=== PATIENT | female | born 1960 | race Caucasian/White ===

== ENCOUNTER → 2016-08-07 | Outpatient (CLI) | payer OTHER ==
[2016-08-07 16:47] LABS: BASO % 0.4 %; BASO ABS # 0.03 K/uL (0-0.2); COMPLETE YES; EOS % 1.3 %; HEMATOCRIT 43.1 % (37-47); LYMPH % 33.1 %; LYMPH ABS # 2.24 K/uL (1.2-3.4); MEAN CELL VOLUME 90.7 fL (80-100); MEAN CORPUSCULAR HEMOGLOBIN 30.9 pg (25-34); MEAN CORPUSCULAR HGB CONC 34.1 g/dl (32-36); MEAN PLATELET VOLUME 10.1 fL (7.4-10.4); MONO % 6.8 %; NEUT % 58.4 %; PLATELET COUNT 288 K/uL (130-400); RED BLOOD COUNT 4.75 M/uL (4.2-5.4); WHITE BLOOD COUNT 6.77 K/uL (4.8-10.8)
[2016-08-07 17:22] LABS: BLOOD UREA NITROGEN 18 mg/dl (7-18); BUN/CREATININE RATIO 20.9 (10-20); CALCIUM 9.1 mg/dl (8.5-10.1); CARBON DIOXIDE 28 mmol/L (21-32); CHLORIDE 105 mmol/L (98-107); CREATININE 0.87 mg/dl (0.60-1.20); GLUCOSE 92 mg/dl (70-99); POTASSIUM 4.2 mmol/L (3.5-5.1); SODIUM 140 mmol/L (136-145)
== END | disposition home or self-care (01) ==
LOC: C.CPL 15:40
PROVIDERS: ATTEND Physician Assistant
DX: S83.241A Other tear of medial meniscus, current injury, right knee, initial encounter (principal); X58.XXXA Exposure to other specified factors, initial encounter

== ENCOUNTER → 2016-08-07 | Outpatient (CLI) | payer OTHER | END | disposition home or self-care (01) | LOC: C.RDSM 10:37 | PROVIDERS: ATTEND Physical Medicine & Rehabilitation Sports Medicine | DX: M25.561 Pain in right knee (principal) ==

== ENCOUNTER → 2016-08-15 | Day surgery (SDC) | payer OTHER ==
[2016-08-14 09:49] VITALS: BMI 27.0
[2016-08-14 15:02] VITALS: Ht 158.8 cm; Wt 59.1 kg
[~2016-08-15] VITALS: Ht 158.8 cm; Wt 59.1 kg
[~2016-08-15] MED LIST: BUPIVACAINE/EPINEPHRINE 0.5% MPF 1:200,000 30 ML VIAL INJ ONE; BUPIVACAINE/EPINEPHRINE 0.5% MPF 1:200,000 30 ML VIAL ONE; CEFAZOLIN 2000 MG/60 ML D5W IV SCH; DEXAMETHASONE SOD INJ 4 MG/ML VIAL ONE; DURAMORPH 10 MG/10 ML INJ ONE; FENTANYL CITRATE INJ 50 MCG/1 ML 2 ML VIAL ONE; GLYCOPYRROLATE INJ 0.2 MG/ML VIAL ONE; KETOROLAC TROMETHAMINE 30 MG/ML VIAL ONE; LACTATED RINGER'S 1000ML 1,000 ML IV SCH; LIDOCAINE HCL 2% 2 ML VIAL (20MG/ML) ONE; MIDAZOLAM HCL 1 MG/ML 2ML VIAL ONE; MoRPHine SULFATE PF 1 MG/ML 10 ML AMP/VIAL ONE; ONDANSETRON INJ 2 MG/ML 2 ML VIAL IV PRN; ONDANSETRON INJ 2 MG/ML 2 ML VIAL ONE; PATIENT'S ALLERGY INFO NEEDS ENTERED SCH; PATIENT'S HEIGHT AND/OR WEIGHT NEEDED SCH; PROPOFOL IV EMULSION 10 MG/ML 20 ML VIAL IV ONE; SODIUM CHLORIDE 0.9% 1000ML 1,000 ML IV SCH
--- NOTE | 2016-08-15 06:46 | History & Physical Bridge Note ---
H&P Re-Evaluation Bridge Note: I have examined the patient, reviewed the History & Physical and in the interval since the performance of the History & Physical I have noted the following changes of clinical significance: No changes noted
--- NOTE | 2016-08-15 06:48 | Discharge Instructions ---
Discharge Instructions Date of Service Aug 15, 2016. Visit Reason for Visit: Right Knee Medial Meniscus Tear Discharge Discharge Diagnosis / Problem: same Discharge Goals Goal(s): Decrease discomfort, Improve function Medications Stopped Medications Name(s): na Restart Stopped Medication(s): resume all meds scripts as directed Activity Recommendations Activity Limitations: as noted below Lifting Limitations: until after follow-up appointment Exercise/Sports Limitations: until after follow-up appointment May Resume Sexual Activity: when tolerated Shower/Bathe: keep incision dry Driving or Machine Use: resume 1 day after discharge Weightbearing Status: Right weightbearing (as tolerated) Anesthesia . Post Anesthesia Instructions: If you have had General Anesthesia or IV Sedation: * Do not drive today. * Resume driving when surgeon permits. * Do not make important decisions or sign legal documents today. * Call surgeon for: 1. Temperature elevations greater than 101 degrees F. 2. Uncontrollable pain. 3. Excessive bleeding. 4. Persistent nausea and vomiting. 5. Medication intolerance (nausea, vomiting or rash). * For nausea and vomiting use only clear liquids such as: tea, soda, bouillon until nausea subsides, then gradually increase diet as tolerated. * If you have any concerns or questions, call your surgeon's office. If physician is unavailable and it is an emergency, call 911 or go to the nearest emergency room. . Instructions / Follow-Up Instructions / Follow-Up The following are instructions to follow after your Arthroscopic Knee Surgery. ACTIVITY RECOMMENDATIONS: * Minimize activity until your first visit after surgery. * No excessive walking, jogging, sports or laboring. * Return to activity is individualized. Most patients are able to return to every day activities within one month. * Return to sports or intensive labor usually occurs at 2-3 months. * Driving is not permitted until at least your first postoperative visit at a minimum. Please ask your doctor when it is safe to resume driving. If you have an automatic vehicle and your left leg has been operated on, then you may begin driving as soon as you are comfortable and can drive safely. SCHOOL/WORK RECOMMENDATIONS: * You may return to sedentary work or school when you are feeling more comfortable. This is usually 3-7 days after surgery. * Expect increased discomfort with increased activity. Continue to elevate and ice the leg as much as possible. MEDICATIONS: * You will have a prescription for pain medication and an anti-inflammatory medication after surgery. * Use the pain medication for severe pain and the anti-inflammatory for less severe pain. Once the pain medication has run out, try to use the anti-inflammatory medication. If this is not effective, contact the office for assistance. * The pain medication may cause nausea, constipation and drowsiness. You should see how they affect you before driving or similar activity. * The anti-inflammatory medication may cause stomach upset and bleeding. If this occurs let your doctor know immediately . * Take a stool softener like Colace or a laxative like Senokot to prevent constipation. DIET: * Resume previous diet. SPECIAL CARE: ICE: You have the option of an ice cooler, gel packs or ice bags. * If you have an ice cooler, refer to the instructions for that device. The ice cooler may be used continuously. * If you do not have an ice cooler, you will need to use ice bags or gel packs. Do not apply ice directly to the skin. Use a thin dressing or philip shirt between the skin and ice bag. Apply ice for 20-30 minutes and repeat every 2-4 hours. This is especially important for the first 7-10 days after surgery. Once the pain improves, use ice as needed. ELEVATION: * Keep your leg elevated at or above the level of your heart as much as possible. * Expect some increased discomfort and swelling if you are standing for any length of time. * When lying down, avoid placing anything under your knee. Rather, prop your leg up by placing several pillows under your heel or calf. DRESSING: * Your dressing will be changed at your first therapy appointment approximately 4-5 days after surgery. Band-aids, tape strips or gauze may be applied. You may then change your dressing daily. * Reapply dressing followed by the Bert wrap or Tubi-hammerer helper stockinet and EBIce cooling pad (if chosen). * Always wash your hands prior to touching the incision area. * Once the stitches are removed, you may leave the wound open to air or cover with an Bert wrap or Tubi-hammerer helper stockinet. * If you have been given a white elastic stocking (YOLANDA hose), wear as much as possible for the first 1-3 weeks depending on swelling. * Expect some bloody drainage for the first few days after surgery. * Leave the tape strips, if present, in place for 5-7 days. * Band-aids and gauze may be changed daily. CRUTCHES: * You will need to use crutches after surgery. * You may gradually progress to full weight bearing as tolerated and wean off the crutches unless otherwise advised. * Your therapist can provide assistance weaning off crutches. * Patients who have a microfracture done may need to be toe-touch weight- bearing for 4-6 weeks. BATHING: * You may shower or sponge-bathe immediately after surgery. * The dressing will need to be covered with a plastic bag or plastic wrap until the dressing is changed on the fourth or fifth day after surgery. * Once the dressing has been changed on the fourth or fifth day after surgery, you may shower and get the incision wet. * Wash with regular soap and water. * Do not bathe (submerge the incision), soak, swim or use a hot tub until the incision is completely healed over with normal skin and the doctor has given the OK to proceed. * There is no need to apply any ointments, powders or salves to your incision. * Do not apply alcohol or hydrogen peroxide directly to the incision. * Diluted peroxide (50:50 mixture with sterile saline) may be used to clean dried blood from around the incision area. BRACE: * Bracing is generally not needed after routine Arthroscopic Knee surgery. THERAPY: * You will begin therapy four or five days after surgery. * Organized therapy with the therapist is important for the first 4-6 weeks after surgery. During that time you will attend therapy 1-3 times per week. * You will also need to do daily exercises for range of motion and strength as instructed. PROBLEMS/QUESTIONS: * If you have any problems such as severe pain, numbness, tingling or high fevers or if you have any questions, please contact the office at [phone]. * It is not uncommon to have some numbness and tingling after the surgery especially if you have had a nerve block done. This should gradually improve over the first 1- 2 days. If this persists longer or worsens please contact the office. FOLLOW UP VISIT: * If not already scheduled, please call the office at to schedule a follow-up appointment for 10 days, 6 weeks and 3 months after surgery. Diet Recommendations Recommended Home Diet: resume previous diet Procedures Procedures Performed: acopy right knee partial medial menisectomy Pending Studies Studies pending at discharge: no List of pending studies: na Medical Emergencies . Who to Call and When: Medical Emergencies: If at any time you feel your situation is an emergency, please call 911 immediately. . Non-Emergent Contact Non-Emergency issues call your: Specialist Call Non-Emergent contact if: temperature is above 101.5 . . "Provider Documentation" section prepared by Marlon Pillai.
--- NOTE | 2016-08-15 08:18 | [facility] Post Operative Brief Note ---
Immediate Operative Summary Operative Date Aug 15, 2016. Pre-Operative Diagnosis Right Knee Medial Meniscus Tear Post-Operative Diagnosis same Procedure(s) Performed Right Knee Arthroscopy, Partial Medial Meniscectomy, Chondroplasty Medial Femoral Condyle Surgeon Dr. Raul Pillai Director Of Marketing Communications Surgeon(s) Dr. Jos Trujillo Estimated Blood Loss trace Findings mm tear/chondral disease mfc Fluids (cc crystalloids) 700cc Specimens none Drains none Anesthesia LMA/ IA block Complication(s) None Disposition Recovery Room / PACU
--- NOTE | 2016-08-15 08:41 | OPERATIVE REPORT ---
DATE OF OPERATION: 08/15/2016 PREOPERATIVE DIAGNOSIS: Medial meniscus tear. POSTOPERATIVE DIAGNOSIS: Same with chondral disease, medial compartment and reactive synovitis. OPERATION PERFORMED: 1. Exam under anesthesia. 2. Diagnostic arthroscopy. 3. Arthroscopic partial medial meniscectomy. 4. Arthroscopic chondroplasty medial femoral condyle with synovectomy. SURGEON: Dr. Pillai. GRAPHIC ARTS INSTRUCTOR: Dr. Bert Richter. SECOND GRAPHIC ARTS INSTRUCTOR: Rich Ansari PA-C PERIOPERATIVE SITUATION: Medically cleared female with intractable pain, has significant discomfort and stiffness. Physical exam, x-ray and MRI scan consistent with medial meniscus tear. Of note, is that she has dense osteochondroma medial proximal tibia which is not where her symptoms are at this point, but was advised that this could be giving her some hamstring irritation. OPERATION AND FINDINGS: OPERATION: The patient appropriately identified, site verified, consent verified, 2 grams of Ancef confirmed as being given. The right lower extremity was examined revealing no ligamentous instability. It was then sterilely injected with 20 mL of 0.5% Marcaine with epinephrine and 5 mg of Duramorph for postoperative pain control. The knee was then prepped and draped in usual routine fashion. No tourniquet was applied or utilized. Once the leg was prepped and draped in usual routine fashion, the inframedial and inferolateral portals were marked and injected with 4 mL 0.5% Marcaine with epinephrine. The knee was then entered with an inferolateral portal and a medial portal localized with a needle and then made. Inspection of the joint revealed the articular disease in the medial condyle which was debrided. Synovitis was debrided. The lateral compartment was healthy. The ACL and PCL were healthy. There was some minor chondral changes of the patellofemoral joint which were incidentally debrided. The medial meniscus had a very complex horizontal cleavage tear with a double bucket. This was resected to a stable balanced contoured rim with hand and power instrumentation. It was then trephinated with a needle percutaneously and some gelatinous fluid evacuated from the area of the horizontal cleavage. It was then irrigated the shaver, shaved with the shaver and good bleeding encountered there which hopefully will seal that up and not create a Leiva's cyst. The procedure was then terminated after all instruments and fluid removed. Approximately 35% of the posterior half of the meniscus was removed. The knee was then irrigated. All instruments and fluid removed. The portals closed with 4-0 nylon, dressed with Xeroform, 4 x 4 gauze, sterile Webril, ABD pads and above knee YOLANDA stocking. DVT prophylaxis per protocol, weightbearing to tolerance, no block to range of motion and drive when off narcotics. Return to work several weeks. I attest to the content of the Intraoperative Record and any orders documented therein. Any exceptio ns are noted below.
--- NOTE | 2016-08-15 09:15 | Anesthesia Progress Nt - [facility] ---
Anesthesia Post Op Note Date & Time Aug 15, 2016 at 09:14 Vital Signs Pain Intensity: 0 Vital Signs Past 12 Hours Date Time Temp Pulse Resp B/P Pulse Ox O2 Delivery O2 Flow Rate FiO2 08/15/16 09:01 109/71 08/15/16 08:59 71 17 98 08/15/16 08:59 71 17 08/15/16 08:58 36.9 74 16 109/71 99 Room Air Mask 08/15/16 08:57 111/64 08/15/16 08:54 74 14 08/15/16 08:54 75 14 99 08/15/16 08:51 98/75 08/15/16 08:49 76 24 08/15/16 08:49 76 24 99 08/15/16 08:46 110/68 08/15/16 08:44 72 10 100 08/15/16 08:44 72 10 08/15/16 08:40 106/74 08/15/16 08:39 73 15 100 08/15/16 08:39 74 15 08/15/16 08:35 100/72 08/15/16 08:34 78 14 08/15/16 08:34 79 14 100 08/15/16 08:31 101/65 08/15/16 08:29 88 15 08/15/16 08:29 88 15 107/62 99 08/15/16 08:29 36.5 90 12 107/62 99 Mask 6 08/15/16 06:27 36.5 63 16 119/74 98 Room Air Notes Mental Status: alert / awake / arousable, participated in evaluation Pt Amnestic to Procedure: Yes Nausea / Vomiting: adequately controlled Pain: adequately controlled Airway Patency, RR, SpO2: stable & adequate BP & HR: stable & adequate Hydration State: stable & adequate Anesthetic Complications: no major complications apparent
[2016-08-15 09:47] VITALS: BP 108/73; PULSE 77; TEMP 36.5; O2SAT 100
--- NOTE | 2016-08-15 11:37 | OPERATIVE REPORT ---
DATE OF OPERATION: 08/15/2016 PREOPERATIVE DIAGNOSIS: Right knee medial meniscal tear. POSTOPERATIVE DIAGNOSIS: Right knee same with chondral disease of the medial compartment and reactive synovitis. PROCEDURE: Right knee arthroscopy, partial medial meniscectomy, and chondroplasty medial femoral condyle with synovectomy. SURGEON: Dr. Pillai. DIRECTOR OF RESTAURANT OPERATIONS: Dr. Richter. SECOND POUNCING MACHINE OPERATOR: Rich Ansari PA-C. HISTORY OF PRESENT ILLNESS: This 56-year-old white female presented to the office with complaints of medial right knee pain. She had tried conservative care measures without success. She elected to proceed with surgical intervention after being educated about potential risks and outcomes. Preoperative x-ray and MRI were obtained. OPERATION: The patient was taken to the operating room where she was given general anesthetic. She was prepped and draped in the usual sterile fashion. Please see Dr. Pillai's operative report for specifics of the procedure. I was present for the entire case from initial patient positioning through final wound closure. Assistance was provided in patient positioning, arthroscopy, and final wound closure. The patient was taken to the recovery room in satisfactory condition. I attest to the content of the Intraoperative Record and any orders documented therein. Any exceptio ns are noted below.
== END | disposition home or self-care (01) ==
LOC: X.SURG 06:10
PROVIDERS: ATTEND Physical Medicine & Rehabilitation Sports Medicine
DX: M23.231 Derangement of other medial meniscus due to old tear or injury, right knee (principal); M94.261 Chondromalacia, right knee; M65.9 Synovitis and tenosynovitis, unspecified